=== PATIENT | female | born 1945 | race Caucasian/White ===

== ENCOUNTER 2018-11-19 12:46 | Emergency (ER) | payer MEDICARE, BC ==
[~2018-11-19] VITALS: Ht 160 cm; Wt 62.1 kg
[~2018-11-19 12:46] MED LIST: ASPI-1071 PO; DILT120C62 PO; LOSA50TA3 PO; OMEP20CA11 PO; SYN0.088T PO
[2018-11-19] MEDS ORDERED: HYDR-3686 PO (15:16)
[2018-11-19 15:29] VITALS: BP 156/78
== END 2018-11-19 15:31 | disposition home or self-care (01) ==
LOC: ER 12:47
DX: L51.9 Erythema multiforme, unspecified (principal); I10 Essential (primary) hypertension; Z88.5 Allergy status to narcotic agent; Z79.82 Long term (current) use of aspirin; Z79.899 Other long term (current) drug therapy
CPT/HCPCS: 93005; 99283

== ENCOUNTER 2018-11-21 19:22 | Emergency (ER) | payer MEDICARE, BC ==
[~2018-11-21] VITALS: Ht 160 cm; Wt 63.6 kg
[~2018-11-21 19:22] MED LIST changes: +HYDR-3686 PO
[2018-11-21 20:27] VITALS: BP 131/80
[2018-11-21] MEDS ORDERED: PRED20TA PO (21:14)
[2018-11-21] MEDS ORDERED: triamcinolone acetonide 40mg/ml inj IM ONE (21:15)
== END 2018-11-21 21:26 | disposition home or self-care (01) ==
LOC: ER 19:23
DX: T78.40XA Allergy, unspecified, initial encounter (principal); L50.9 Urticaria, unspecified; H57.89 Other specified disorders of eye and adnexa; I10 Essential (primary) hypertension; Z88.1 Allergy status to other antibiotic agents; Z88.6 Allergy status to analgesic agent; Z79.899 Other long term (current) drug therapy; Z79.82 Long term (current) use of aspirin; Z88.2 Allergy status to sulfonamides; Z60.2 Problems related to living alone; X58.XXXA Exposure to other specified factors, initial encounter
CPT/HCPCS: 96372; 99283; J3301

== ENCOUNTER 2024-02-14 14:24 | Outpatient (CLI) | payer MEDICARE, BC ==
[~2024-02-14 14:24] MED LIST changes: -HYDR-3686 PO; +LOSA-416 PO; -LOSA50TA3 PO; -OMEP20CA11 PO; +OMEP20CA15 PO
== END 2024-02-14 23:59 | disposition home or self-care (01) ==
LOC: MRI 14:24
PROVIDERS: ATTEND Podiatrist Foot & Ankle Surgery
DX: M19.072 Primary osteoarthritis, left ankle and foot (principal); M24.172 Other articular cartilage disorders, left ankle; M87.9 Osteonecrosis, unspecified; M21.42 Flat foot [pes planus] (acquired), left foot; M79.672 Pain in left foot
CPT/HCPCS: 73721